=== PATIENT | male | born 1995 | race Caucasian/White ===

== ENCOUNTER → 2019-12-17 09:53 | Outpatient (CLI) | payer BC, SELFPAY ==
[2019-12-20 07:07] LABS: Almond 0.68 kU/L (Class II); Barley, Whole Grain 0.95 kU/L (Class II); Beef <0.10 kU/L (Class 0); Carrot 0.47 kU/L (Class I); Casein <0.10 kU/L (Class 0); Cashew 0.24 kU/L (Class 0/I); Chicken 0.33 kU/L (Class I); Chocolate <0.10 kU/L (Class 0); Clam 5.85 kU/L (Class IV); Codfish 0.11 kU/L (Class 0/I); Corn 0.66 kU/L (Class II); Egg, White 0.29 kU/L (Class 0/I); Egg, Whole 0.18 kU/L (Class 0/I); Egg, Yolk 0.18 kU/L (Class 0/I); Garlic 0.65 kU/L (Class II); Gluten 0.38 kU/L (Class I); Hazelnut/Filbert 0.38 kU/L (Class I); Milk (Cow) 0.12 kU/L (Class 0/I); Oat 0.67 kU/L (Class II); Onion 0.69 kU/L (Class II); Orange 0.59 kU/L (Class II); Pea 0.25 kU/L (Class 0/I); Pecan <0.10 kU/L (Class 0); Pork <0.10 kU/L (Class 0); Rice 0.58 kU/L (Class II); Rye 0.86 kU/L (Class II); Salmon <0.10 kU/L (Class 0); Soybean 0.38 kU/L (Class I); Strawberry 0.29 kU/L (Class 0/I); Tomato 0.81 kU/L (Class II); Walnut, (Food) 0.41 kU/L (Class I); Wheat 1.53 kU/L (Class III); Yeast <0.10 kU/L (Class 0)
[2019-12-20 09:45] LABS: Peanut 0.76 kU/L (Class II)
[2019-12-24 04:06] LABS: Banana 0.64 kU/L (Class II); Celery 0.77 kU/L (Class II); Cheddar Cheese <0.10 kU/L (Class 0); Lettuce 0.59 kU/L (Class II); Peach 0.47 kU/L (Class I); Turkey <0.10 kU/L (Class 0)
[2019-12-24 13:18] LABS: Lactalbumin, Alpha <0.10 kU/L (Class 0)
== END ==
PROVIDERS: PCP Family Medicine; Visit Provider Family Medicine
DX: Z91.018 Allergy to other foods (principal)
CPT/HCPCS: 36415; 86003

== ENCOUNTER → 2022-05-11 | Outpatient (CLI) | payer BC, SELFPAY ==
[2022-05-11 08:07] LABS: ALB/GLOB Ratio 1.1 RATIO (0.9-2.4); AST(SGOT) 36 U/L (15-37); Alanine Aminotransfer ALT/SGPT 93 U/L (16-61); Albumin, Serum 3.8 g/dL (3.2-5.0); Alkaline Phosphatase 58 U/L (45-117); Anion Gap 5 (5-15); BUN 12 mg/dL (7-18); BUN/Creat Ratio 14.4 RATIO (10-20); Chloride 106 mmol/L (98-107); Cholesterol 217 mg/dL (200); Creatinine, Serum 0.84 mg/dL (0.70-1.30); EST Glomerular Filtration Rate 118 mL/min (>60); Est Glom Filt Rate - Afr Amer 143 mL/min (>60); Globulin 3.6 g/dL (2.2-4.2); Glucose 102 mg/dL (74-106); High Density Lipoprotein 40 mg/dL; Protein, Total 7.4 g/dL (6.4-8.2); Sodium Level 140 mmol/L (136-145); Triglycerides 190 mg/dL; Very Low Density Lipoprotein 38 mg/dL (5-40)
== END | disposition home or self-care (01) ==
PROVIDERS: PCP Family Medicine; Referring Provider Family Medicine; Visit Provider Family Medicine
DX: Z00.00 Encounter for general adult medical examination without abnormal findings (principal)
CPT/HCPCS: 36415; 80053; 80061

== ENCOUNTER → 2023-04-28 | Outpatient (CLI) | payer OTHER, SELFPAY ==
[2023-04-28 08:16] LABS: ALB/GLOB Ratio 1.1 RATIO (0.9-2.4); AST(SGOT) 23 U/L (15-37); Alanine Aminotransfer ALT/SGPT 55 U/L (16-61); Albumin, Serum 3.9 g/dL (3.2-5.0); Alkaline Phosphatase 57 U/L (45-117); Anion Gap 4 (5-15); BUN 14 mg/dL (7-18); BUN/Creat Ratio 17.2 RATIO (10-20); Calcium,Total 9.2 mg/dL (8.5-10.1); Chloride 107 mmol/L (98-107); Cholesterol 172 mg/dL (200); Creatinine, Serum 0.81 mg/dL (0.70-1.30); EST Glomerular Filtration Rate 121 mL/min (>60); Est Glom Filt Rate - Afr Amer 147 mL/min (>60); Globulin 3.5 g/dL (2.2-4.2); Glucose 104 mg/dL (74-106); High Density Lipoprotein 42 mg/dL; Protein, Total 7.4 g/dL (6.4-8.2); Sodium Level 141 mmol/L (136-145); Triglycerides 105 mg/dL; Very Low Density Lipoprotein 21 mg/dL (5-40)
== END | disposition home or self-care (01) ==
LOC: LAB 06:52
PROVIDERS: PCP Family Medicine; Referring Provider Family Medicine; Visit Provider Family Medicine
DX: Z00.00 Encounter for general adult medical examination without abnormal findings (principal)
CPT/HCPCS: 36415; 80053; 80061

== ENCOUNTER → 2024-09-20 | Outpatient (CLI) | payer OTHER, SELFPAY ==
--- OUTSIDE RECORDS SUMMARY | 2024-09-20 08:23 | XMS RPT_ITS | CCD ---
Author Organization [facility] [employer] [facility] [employer] [facility] Care Team Providers Care Audit Partner Name Role Phone VIRGIE, MIGUEL Nelson Attending Unavailable VIRGIE, MIGUEL Nelson Primary Care Unavailable VIRGIE, MIGUEL E Admitting Unavailable VIRGIE, MIGUEL E Attending Unavailable VIRGIE, MIGUEL E Primary Care Unavailable VIRGIE, MIGUEL E Admitting Unavailable Encounters Encounter Date Encounter Type Care Provider Facility Start: 02-26-2021 End: 02-26-2021 Patient encounter procedure MIGUEL Nelson VIRG[facility] Start: 02-05-2021 End: 02-05-2021 Patient encounter procedure MIGUEL Nelson VIRG[facility] Payers Date Payer Category Payer Unknown [id number] 1995 Unknown [id number] Unknown [id number] Summary Purpose Family History No Family History Records Found Advance Directives No Advanced Directives Records Found Additional Source Comments (unrecognized sect ion and content) No Status Records Found INFORMATION SOURCE (unrecogn ized section and content) DATE CREATED AUTHOR 03/06/2021 [facility] FOR RECORDS PERTAINING TO PATIENTS WHO ARE OR HAVE BEEN ENROLLED IN A CHEMICAL DEPENDENCY/SUBSTANCEABUSE PROGRAM, SOME INFORMATION MAY BE OMITTED. This clinical summary was aggregated from multiple sources. Caution should be exercised in using it in the provision of clinical care. This summary normalizes information from multiple sources, and as a consequence, information in this document may materially change the coding, format and clinical context of patient data. In addition, data may be omitted in some cases. CLINICAL DECISIONS SHOULD BE BASED ON THE PRIMARY CLINICAL RECORDS. [facility] [employer] [facility]. provides no warranty or guarantee of the accuracy or completeness of information in this document.
[2024-09-20 08:49] LABS: Absolute Lymphocyte Count 1.43 X10^3/uL (0.83-4.51); Absolute Neutrophil Count 1.7 X10^3/uL (2.0-7.7); Basophil# 0.06 X10^3/uL; Basophil% 1.7 % (0-1); Eosinophil# 0.11 X10^3/uL; Eosinophils% 3.1 % (0-5); Hemoglobin 15.3 g/dL (13.0-16.5); Lymphocyte # 1.43 X10^3/ul (0.83-4.51); Lymphocyte % 39.8 % (19-41); Mean Corp Hgb Conc 33.3 g/dL (32-36); Mean Corpuscular Volume 84.1 fL (80-94); Mean Platelet Vol. 10.4 fl (6.2-12.0); Monocyte# 0.29 X10^3/uL; Monocyte% 8.1 % (0-10); NRBC Flagged by Analyzer 0 % (0-5); Neutrophil # 1.69 X10^3/uL (2.7-7.7); Platelet Count 269 K/mm3 (150-450); RBC Distribution Width CV 12.2 % (11.6-14.6); Red Blood Count 5.47 M/mm3 (4.6-6.2); White Blood Count 3.6 K/mm3 (4.4-11.0)
[2024-09-20 09:22] LABS: ALB/GLOB Ratio 1.2 RATIO (0.9-2.4); AST(SGOT) 23 U/L (15-37); Alanine Aminotransfer ALT/SGPT 51 U/L (16-61); Albumin, Serum 4.1 g/dL (3.2-5.0); Alkaline Phosphatase 67 U/L (45-117); Anion Gap 7 (5-15); BUN 15 mg/dL (7-18); Calcium,Total 9.2 mg/dL (8.5-10.1); Chloride 105 mmol/L (98-107); Cholesterol 200 mg/dL (200); Creatinine, Serum 0.94 mg/dL (0.70-1.30); EST Glomerular Filtration Rate 102 mL/min (>60); Est Glom Filt Rate - Afr Amer 124 mL/min (>60); Globulin 3.5 g/dL (2.2-4.2); Glucose 97 mg/dL (74-106); High Density Lipoprotein 43 mg/dL; Protein, Total 7.6 g/dL (6.4-8.2); Sodium Level 141 mmol/L (136-145); Triglycerides 121 mg/dL; Very Low Density Lipoprotein 24 mg/dL (5-40)
== END | disposition home or self-care (01) ==
LOC: LAB 07:57
PROVIDERS: PCP Family Medicine; Referring Provider Family Medicine; Visit Provider Family Medicine
DX: Z00.00 Encounter for general adult medical examination without abnormal findings (principal)
CPT/HCPCS: 36415; 80053; 80061; 85025

== ENCOUNTER → 2025-04-25 | Outpatient (CLI) | payer OTHER, SELFPAY ==
--- NOTE | 2025-04-25 09:30 | RAD_ITS ---
EXAM: XR Abdomen, 1 View CLINICAL INDICATION: POST DEFECATION EMESIS, SUSPECT CONSTIPATION TECHNIQUE: Frontal supine view of the abdomen/pelvis. COMPARISON: No relevant prior studies available. FINDINGS: GASTROINTESTINAL TRACT: Unremarkable. No dilation. BONES/JOINTS: Unremarkable. No acute fracture. RAD/Abdomen Single View IMPRESSION: Nonobstructive bowel gas pattern. Reading Location: [facility]
== END | disposition home or self-care (01) ==
LOC: MTRAD 09:28
PROVIDERS: PCP Family Medicine; Referring Provider Family Medicine; Visit Provider Family Medicine
DX: K59.00 Constipation, unspecified (principal)
CPT/HCPCS: 74018